=== PATIENT | female | born 1955 | race Caucasian/White ===

== ENCOUNTER 2019-11-16 14:25 | Outpatient (CLI) | payer MEDICARE, SELFPAY ==
--- NOTE | 2019-11-16 15:00 | USCV_ITS ---
Amy Lowery Age: 64 Gender: F : 1955 Exam Date: 11/16/2019 14:44 Ordering Phys: Toby Anderson MD ([email or web address]) Technologist: Tammy Mcghee Exam Location: [facility] [place] Indication: MV INSUF BP: 159 / 76 HR: 75 Rhythm: Sinus Technical Quality: Adequate MEASUREMENTS (Male / Female) Normal Values 2D ECHO LV Diastolic Diameter PLAX 3.7 cm 4.2 - 5.9 / 3.9 - 5.3 cm LV Systolic Diameter PLAX 3.3 cm LV Chamber Size 3.3 cm IVS Diastolic Thickness 1.3 cm 0.6 - 1.0 / 0.6 - 0.9 cm IVS Systolic Thickness 1.5 cm LVPW Diastolic Thickness 1.8 cm 0.6 - 1.0 / 0.6 - 0.9 cm LVPW Systolic Thickness 2.0 cm RV Chamber Size 3.1 cm LVOT Diameter 2.0 cm LV Ejection Fraction 2D Teich 23.0 % LV Ejection Fraction MOD 2C 77.1 % LV Ejection Fraction 2C AL 77.9 % LA Diameter 3.1 cm LA Width 3.5 cm LA Height 4.2 cm RA Width 3.5 cm RA Height 4.3 cm Aorta at Sinotubular Diameter 2.3 cm M-MODE LV Diastolic Diameter MM 5.4 cm 4.2 - 5.9 / 3.9 - 5.3 cm LV Systolic Diameter MM 3.6 cm LV Ejection Fraction MM Teich 62.4 % IVS Diastolic Thickness MM 0.7 cm 0.6 - 1.0 / 0.6 - 0.9 cm IVS Systolic Thickness MM 0.8 cm LVPW Diastolic Thickness MM 0.7 cm 0.6 - 1.0 / 0.6 - 0.9 cm LVPW Systolic Thickness MM 1.2 cm Aortic Annulus Diameter 2.2 cm LA Ao Ratio MM 1.4 MV E Point Septal Separation 1.0 cm DOPPLER AV Peak Velocity 121.0 cm/s LVOT Peak Velocity 97.0 cm/s AV Area Cont Eq vti 2.2 cm squared AV Area Cont Eq pk 2.5 cm squared MV Area PHT 3.2 cm squared Mitral E to A Ratio 0.7 MV E' Velocity 9.0 cm/s Mitral E to MV E' Ratio 9.9 Mitral E to LV E' Lateral Ratio 8.2 Mitral E to LV E' Septal Ratio 12.6 TR Peak Velocity 140.0 cm/s TR Peak Gradient 7.8 mmHg TV Peak E Velocity 62.0 cm/s Right Atrial Pressure 3.0 mmHg Pulmonary Artery Systolic Pressu 10.8 mmHg PV Peak Velocity 76.0 cm/s RV Acceleration Time 0.2 s RV Ejection Time 0.4 s RV AcT/ET 0.5 FINDINGS Left Ventricle Normal left ventricular size and systolic function, EF 66 %. Mild left ventricular hypertrophy. Grade I/IV diastolic dysfunction (abnormal relaxation filling pattern), normal to mildly elevated filling pressures. Right Ventricle Normal right ventricular size and systolic function. Right Atrium Upper limit of normal size Left Atrium Upper limit of normal size Mitral Valve Minimally thickened mitral valve. Grade 1 prolapse of the mitral valve.trace mitral valve regurgitation. Aortic Valve Thickened aortic valve. Tricuspid Valve Mild tricuspid valve regurgitation. Pulmonic Valve Pulmonic valve not well visualized. Pericardium No pericardial effusion. Aorta Normal aortic annulus size. CONCLUSIONS Normal left ventricular size and systolic function, EF 66 %. Mild left ventricular hypertrophy. Grade I/IV diastolic dysfunction (abnormal relaxation filling pattern), normal to mildly elevated filling pressures. Thickened aortic valve. Minimally thickened mitral valve. Grade 1 prolapse of the mitral valve. Trace mitral valve regurgitation. Mild tricuspid valve regurgitation. There is no pericardial effusion. There are no intracardiac masses. No previous study is available for comparison. Dr Toby Anderson MD [facility] (Electronically Signed) Final Date: 16 November 2019 19:42 S
== END 2019-11-16 14:26 | disposition home or self-care (01) ==
LOC: RAD 14:30
PROVIDERS: Family Provider Family Medicine; PCP Family Medicine; Visit Provider Internal Medicine Cardiovascular Disease
DX: I08.3 Combined rheumatic disorders of mitral, aortic and tricuspid valves (principal)
CPT/HCPCS: 93306

== ENCOUNTER → 2020-05-23 09:19 | Outpatient (BNVA) | payer MEDICARE, SELFPAY | PROVIDERS: Family Provider Family Medicine; PCP Family Medicine; Visit Provider Internal Medicine Cardiovascular Disease | DX: E78.5 Hyperlipidemia, unspecified (principal) | CPT/HCPCS: 80061 ==

== ENCOUNTER → 2020-06-29 11:03 | Outpatient (BNVA) | payer MEDICARE, SELFPAY | PROVIDERS: Family Provider Family Medicine; PCP Family Medicine; Visit Provider Family Medicine | DX: M25.562 Pain in left knee (principal); S86.912A Strain of unspecified muscle(s) and tendon(s) at lower leg level, left leg, initial encounter; X58.XXXA Exposure to other specified factors, initial encounter | CPT/HCPCS: 73562 ==

== ENCOUNTER → 2020-08-31 09:57 | Outpatient (BNVA) | payer MEDICARE, SELFPAY | PROVIDERS: PCP Family Medicine; Referring Provider Family Medicine; Visit Provider Specialist | DX: M25.562 Pain in left knee (principal); M79.672 Pain in left foot; S72.432A Displaced fracture of medial condyle of left femur, initial encounter for closed fracture; S83.242A Other tear of medial meniscus, current injury, left knee, initial encounter; Z47.89 Encounter for other orthopedic aftercare; S72.432D Displaced fracture of medial condyle of left femur, subsequent encounter for closed fracture with routine healing; X58.XXXD Exposure to other specified factors, subsequent encounter | CPT/HCPCS: 73560; 73565; 97760; L1812 ==

== ENCOUNTER 2020-08-31 11:33 | Outpatient (CLI) | payer MEDICARE, SELFPAY | END 2020-08-31 11:34 | disposition home or self-care (01) | LOC: SPT 11:34 | PROVIDERS: PCP Family Medicine; Visit Provider Specialist | DX: Z47.89 Encounter for other orthopedic aftercare (principal); S72.432D Displaced fracture of medial condyle of left femur, subsequent encounter for closed fracture with routine healing; X58.XXXD Exposure to other specified factors, subsequent encounter | CPT/HCPCS: 97760; L1812 ==

== ENCOUNTER → 2020-10-25 09:40 | Outpatient (BNVA) | payer MEDICARE, SELFPAY | PROVIDERS: PCP Family Medicine; Referring Provider Specialist; Visit Provider Podiatrist Foot & Ankle Surgery | DX: M79.672 Pain in left foot (principal); M20.40 Other hammer toe(s) (acquired), unspecified foot; M21.619 Bunion of unspecified foot | CPT/HCPCS: 73630 ==

== ENCOUNTER 2020-10-25 10:24 | Outpatient (CLI) | payer MEDICARE, SELFPAY | END 2020-10-25 10:25 | disposition home or self-care (01) | LOC: SPT 10:24 | PROVIDERS: PCP Family Medicine; Visit Provider Specialist | DX: Z46.89 Encounter for fitting and adjustment of other specified devices (principal); S72.432D Displaced fracture of medial condyle of left femur, subsequent encounter for closed fracture with routine healing; X58.XXXD Exposure to other specified factors, subsequent encounter | CPT/HCPCS: 97760; L1851 ==

== ENCOUNTER 2020-11-29 13:53 | Outpatient (CLI) | payer MEDICARE, SELFPAY | END 2020-11-29 13:54 | disposition home or self-care (01) | LOC: SPT 13:54 | PROVIDERS: PCP Family Medicine; Visit Provider Podiatrist Foot & Ankle Surgery | DX: Z46.89 Encounter for fitting and adjustment of other specified devices (principal); S72.435D Nondisplaced fracture of medial condyle of left femur, subsequent encounter for closed fracture with routine healing; X58.XXXD Exposure to other specified factors, subsequent encounter | CPT/HCPCS: L3030 ==

== ENCOUNTER 2021-01-10 06:00 | Outpatient (RCR) | payer MEDICARE, SELFPAY | END 2021-02-07 23:59 | disposition home or self-care (01) | LOC: GPT 06:00 | PROVIDERS: PCP Family Medicine; Referring Provider Specialist; Visit Provider Specialist | DX: S72.432D Displaced fracture of medial condyle of left femur, subsequent encounter for closed fracture with routine healing (principal); X58.XXXD Exposure to other specified factors, subsequent encounter | CPT/HCPCS: 97032; 97110; 97112; 97116; 97140; 97162; 97530; 97760 ==

== ENCOUNTER → 2021-01-31 11:09 | Outpatient (BNVA) | payer MEDICARE, SELFPAY | PROVIDERS: PCP Family Medicine; Visit Provider Internal Medicine Cardiovascular Disease | DX: R06.02 Shortness of breath (principal); E78.5 Hyperlipidemia, unspecified | CPT/HCPCS: 80048; 80061 ==

== ENCOUNTER 2021-02-08 06:00 | Outpatient (RCR) | payer MEDICARE, SELFPAY | END 2021-03-09 23:59 | disposition home or self-care (01) | LOC: GPT 06:00 | PROVIDERS: PCP Family Medicine; Referring Provider Specialist; Visit Provider Specialist | DX: S72.422D Displaced fracture of lateral condyle of left femur, subsequent encounter for closed fracture with routine healing (principal); X58.XXXD Exposure to other specified factors, subsequent encounter | CPT/HCPCS: 97032; 97110; 97112; 97116; 97140; 97164; 97530 ==

== ENCOUNTER 2021-03-10 06:00 | Outpatient (RCR) | payer MEDICARE, SELFPAY | END 2021-04-09 23:59 | disposition home or self-care (01) | LOC: GPT 06:00 | PROVIDERS: PCP Family Medicine; Referring Provider Specialist; Visit Provider Specialist | DX: Z47.1 Aftercare following joint replacement surgery (principal); Z96.652 Presence of left artificial knee joint | CPT/HCPCS: 97116; 97530 ==

== ENCOUNTER 2021-03-22 10:12 | Outpatient (CLI) | payer MEDICARE, SELFPAY ==
--- NOTE | 2021-03-22 15:45 | XR_ITS ---
WS: [id number] SCREENING DEXA SCAN [employer] CLINICAL INFORMATION: S72.435A - Nondisplaced fracture of medial condyle of left femur, initial encou nter for closed fracture COMPARISON: None. FINDINGS: Lumbar scoliosis. The L1-L4 bone mineral density measures 1.172 g/cm2. This corresponds to a T score score of -0.1 and Z score of 0.8. Left femoral neck bone mineral density measures 0.844 g/cm2. This corresponds to a T score of -1.3 an d Z score of -0.5. Right femoral neck bone mineral density measures 0.968 g/cm2. This corresponds to a T score -0.3of an d Z score of 0.5. Mean femoral neck bone mineral density measures 0.906 g/cm2. This corresponds to a T score of -0.8 an d Z score of 0.0. XR/XR DEXA axial skeleton* [id number] IMPRESSION: Osteopenia left hip. Normal bone mineralization lumbar spine and right hip. Patient's FRAX calculated 10 year probability for major osteoporotic fracture i s 15.2 % and osteoporotic hip fracture is 1.9%.
== END 2021-03-22 10:13 | disposition home or self-care (01) ==
PROVIDERS: PCP Family Medicine; Visit Provider Family Medicine
DX: S72.435A Nondisplaced fracture of medial condyle of left femur, initial encounter for closed fracture (principal); Z78.0 Asymptomatic menopausal state; M85.88 Other specified disorders of bone density and structure, other site
CPT/HCPCS: 77080

== ENCOUNTER 2021-04-06 06:00 | Outpatient (RCR) | payer MEDICARE, SELFPAY | END 2021-04-09 23:59 | disposition home or self-care (01) | LOC: GPT 06:00 | PROVIDERS: PCP Family Medicine; Referring Provider Orthopaedic Surgery Pediatric Orthopaedic Surgery; Visit Provider Orthopaedic Surgery Pediatric Orthopaedic Surgery | DX: Z47.1 Aftercare following joint replacement surgery (principal); Z96.652 Presence of left artificial knee joint | CPT/HCPCS: 97110; 97116; 97161; 97530 ==

== ENCOUNTER 2021-04-10 06:00 | Outpatient (RCR) | payer MEDICARE, SELFPAY | END 2021-05-09 23:59 | disposition home or self-care (01) | LOC: GPT 06:00 | PROVIDERS: PCP Family Medicine; Referring Provider Orthopaedic Surgery Pediatric Orthopaedic Surgery; Visit Provider Orthopaedic Surgery Pediatric Orthopaedic Surgery | DX: Z47.1 Aftercare following joint replacement surgery (principal); Z96.652 Presence of left artificial knee joint | CPT/HCPCS: 97032; 97110; 97112; 97116 ==

== ENCOUNTER 2021-05-10 06:00 | Outpatient (RCR) | payer MEDICARE, SELFPAY | END 2021-06-09 23:59 | disposition home or self-care (01) | LOC: GPT 06:00 | PROVIDERS: PCP Family Medicine; Referring Provider Orthopaedic Surgery Pediatric Orthopaedic Surgery; Visit Provider Orthopaedic Surgery Pediatric Orthopaedic Surgery | DX: Z47.1 Aftercare following joint replacement surgery (principal); Z96.652 Presence of left artificial knee joint | CPT/HCPCS: 97110; 97112; 97116; 97164; 97530 ==

== ENCOUNTER → 2022-02-06 12:58 | Outpatient (BNVA) | payer MEDICARE, SELFPAY | PROVIDERS: PCP Family Medicine; Visit Provider Surgery | DX: Z20.822 Contact with and (suspected) exposure to COVID-19 (principal); Z11.52 Encounter for screening for COVID-19 | CPT/HCPCS: 87635 ==

== ENCOUNTER → 2022-02-07 14:22 | Outpatient (BNVA) | payer MEDICARE, SELFPAY | PROVIDERS: PCP Family Medicine; Visit Provider Internal Medicine Cardiovascular Disease | DX: I25.10 Atherosclerotic heart disease of native coronary artery without angina pectoris (principal); I34.0 Nonrheumatic mitral (valve) insufficiency; Z87.891 Personal history of nicotine dependence | CPT/HCPCS: 99213 ==

== ENCOUNTER 2022-02-11 09:05 | Day surgery (SDC) | payer MEDICARE, SELFPAY ==
[2022-02-08 14:54] VITALS: BMI 25.1
[2022-02-11 09:23] VITALS: BP 159/94; PULSE 65; RESP 17; TEMP 36.1; O2SAT 98
[2022-02-11] MEDS: sodium chloride 0.9% 1,000 ML 30 ML IV (09:48)
--- NOTE | 2022-02-11 09:56 | P.ANESASSM_ITS ---
Pre-Anesthetic Assessment Height/Weight: Height 1.8 m Weight 81.647 kg Temp Pulse Resp BP Pulse Ox 97.0 F L 65 17 159/94 98 02/11/22 09:23 02/11/22 09:23 02/11/22 09:23 02/11/22 09:23 02/11/22 09:23 Preop Diagnosis: Symptomatic hemorrhoid Operation Date: 02/11/22 10:45 Proposed Procedures p Colonoscopy [id number](Not Applicable) - Rodney Ortiz MD s Possible Hemorroidectomy(Not Applicable) - Rodney Ortiz MD Familial anesthetic complications: none Was Beta Juan taken within 24 hours: Yes Was Clonidine taken within 24 hours: N/A Last intake: Intake Last Liquid Date 02/10/22 Last Liquid Time 20:00 Last Solid Date 02/09/22 Last Solid Time 18:00 Social No alcohol and No tobacco Exam alert, oriented x 3, clear to auscultation bilaterally and regular rate & rhythm Airway Mallampati: Class II Dentition: partials and other (missing) CV/HEM Coronary Artery Disease (PCI w/ stents in 2003) and Hypertension 2019 echo CONCLUSIONS ?Normal left ventricular size and systolic function, EF 66 %. ?Mild left ventricular hypertrophy. ?Grade I/IV diastolic dysfunction (abnormal relaxation filling ?pattern), normal to mildly elevated filling pressures. ?Thickened aortic valve. ?Minimally thickened mitral valve.? Grade 1 prolapse of the ?mitral valve. ?Trace mitral valve regurgitation. ?Mild tricuspid valve regurgitation. ?There is no pericardial effusion. ?There are no intracardiac masses. ?No previous study is available for comparison. Metabolic Hyperlipidemia Anesthetic Plan ASA status: 3 Anesthesia: General Medications/Allergies Home Medications Medication Instructions Recorded Confirmed Last Taken Type aspirin 325 mg tablet 325 mg PO DAILY tab 11/11/19 02/11/22 02/07/22 History coenzyme Q10 100 mg capsule 200 mg PO DAILY cap 11/11/19 02/11/22 02/10/22 05:00 History (CoQ-10) cholecalciferol (vitamin D3) 25 25 mcg PO DAILY 06/29/20 02/11/22 02/10/22 05:00 History mcg (1,000 unit) capsule Hinged knee brace #1 each 08/31/20 01/21/22 Unknown Rx Medial Production Illustrator Knee Brace #1 ea 09/11/20 01/21/22 Unknown Rx Sole Supports #1 ea 10/25/20 01/21/22 Unknown Rx valsartan 320 mg tablet 320 mg PO DAILY #90 tab 07/13/21 02/11/22 02/10/22 05:00 Rx amlodipine 5 mg tablet 5 mg PO DAILY #90 tab 08/07/21 02/11/22 02/10/22 05:00 Rx metoprolol succinate 100 mg 100 mg PO DAILY #90 tab 11/06/21 02/11/22 02/11/22 04:30 Rx tablet,extended release 24 hr (Toprol XL) rosuvastatin 20 mg tablet (Crestor) 20 mg PO DAILY 02/08/22 02/11/22 02/10/22 23:00 History Allergies Allergy/AdvReac Type Severity Reaction Status Date / Time acetaminophen [From Tylenol] Allergy Unknown hives Verified 02/11/22 09:24 codeine Allergy ALGY-Rash Verified 02/11/22 09:26 Current Medications Generic Name Dose Route Start Last Admin Trade Name Freq PRN Reason Stop Dose Admin Sodium Chloride 1,000 mls @ 30 mls/hr 02/11/22 09:15 02/11/22 09:48 Sodium Chloride 0.9% IV 02/12/22 09:14 30 mls/hr .Q24H JUANA Administration PFSH Anesthesia Medical History Coronary artery disease Patient had PCI in 2003 at the hospital in [facility]. She had 2 stent placement in the left anterior descending artery. Hyperlipidemia Patient is on Crestor Hypertension Importance of medication compliance was discussed with the patient Surgical History History of coronary artery stent placement Family History Sister CAD (coronary artery disease) Father Suicide Denies family history of Diabetes Clotting disorder Dementia Chronic kidney disease (CKD) Anesthesia complication Bleeding disorder Lung disease Cancer Stroke Social History Smoking and tobacco status: former smoker Alcohol intake: never Household members: spouse Data Anesthesia Cardiac Studies: Echocardiogram Ultrasound 11/16/19
--- NOTE | 2022-02-11 11:45 | W.PM.OPSUD ---
Surgery/Procedure H&P Update DATE OF PROCEDURE: February 11, 2022 DATE H&P PERFORMED: 01/21/22 H&P UPDATE INFORMATION: I have reviewed H&P completed within last 30 days, I have examined patient prior to procedure and No changes to prior documentation PREOP DIAGNOSIS: Symptomatic hemorrhoid PRIMARY INDICATION FOR PROCEDURE: The same PLANNED PROCEDURE: Operation Date: 02/11/22 10:45 Proposed Procedures p Colonoscopy [id number](Not Applicable) - Rodney Ortiz MD s Possible Hemorroidectomy(Not Applicable) - Rodney Ortiz MD
--- NOTE | 2022-02-11 12:27 | P.OP_ITS ---
Operative Report Date of procedure: February 11, 2022 Pre-op diagnosis: Preop Diagnosis Symptomatic hemorrhoid Post-op diagnosis: Normal colonoscopy Procedure done: Diagnostic colonoscopy Surgeon: Rodney Ortiz MD Data Collection Associate: MAGGIE Napier Circulating nurse Jane Anesthesia: MAC (ic design manager Keven) Estimated blood loss: 0 Procedure: Patient was identified in the holding area, was taken to the OR placed first in supine position, time-out was done verifying the patient's name, date of , and procedure, all were in agreement. IV propofol was infused by the anesthesia provider, patient was placed in left lateral position. Patient was monitored via bus driver/monitor all the entire procedure. Perianal examination showed no evidence of hemorrhoidal disease or fissures or lacerations Following that a digital rectal examination was done, the colonoscope was then introduced via the anus under direct visualization, all the way to the cecum, prep of the colon was appropriate, there were no polyps identified or masses or diverticular disease or strictures, the scope was then retrieved back ,time for withdrawal exceeded 6 minutes, gas was deflated on the way out. Retroflex was done at the end showing showed normal findings Patient was repositioned to supine position. Patient was taken to the recovery area in stable condition I was present for the whole entire procedure Recommendation to have a repeat colonoscopy in 10 years
[2022-02-11 12:30] VITALS: BP 139/73; PULSE 72; RESP 16; TEMP 36.6; O2SAT 97
--- NOTE | 2022-02-11 12:33 | ANE.PACU2 ---
Inpatient post-anesthesia follow up: Airway intact: Yes Vital signs: Temperature 97.0 F Pulse Rate 65 Respiratory Rate 17 Blood Pressure 159/94 Pulse Oximetry 98 Oxygen Delivery Me thod Room Air Oxygen Flow Rate Fraction of Inspir ed Oxygen Hydration adequate: Yes Nausea and vomiting: No Pain level: 1 Mental status: Baseline
[2022-02-11 12:35] VITALS: BP 136/79; PULSE 70; RESP 16; TEMP 36.2; O2SAT 97
[2022-02-11 12:43] VITALS: BP 166/94; PULSE 78; RESP 17; TEMP 36.2; O2SAT 97
== END 2022-02-11 13:14 | disposition home or self-care (01) ==
PROVIDERS: PCP Family Medicine; Visit Provider Surgery
PROC: 0DJD8ZZ Inspection of Lower Intestinal Tract, Via Natural or Artificial Opening Endoscopic (ICD-10-PCS; CPT 45378; principal; 2022-02-11 10:45)
DX: K64.9 Unspecified hemorrhoids (principal); I25.10 Atherosclerotic heart disease of native coronary artery without angina pectoris; Z95.5 Presence of coronary angioplasty implant and graft; I10 Essential (primary) hypertension; E78.5 Hyperlipidemia, unspecified; Z79.82 Long term (current) use of aspirin; Z87.891 Personal history of nicotine dependence
CPT/HCPCS: 45378; J0330; J1100; J2405; J2704; J3010; J3490; J7030

== ENCOUNTER → 2022-08-08 14:28 | Outpatient (BNVA) | payer MEDICARE, SELFPAY | PROVIDERS: PCP Family Medicine; Visit Provider Internal Medicine Cardiovascular Disease | DX: I25.10 Atherosclerotic heart disease of native coronary artery without angina pectoris (principal); I34.0 Nonrheumatic mitral (valve) insufficiency; E78.2 Mixed hyperlipidemia; I10 Essential (primary) hypertension; Z87.891 Personal history of nicotine dependence | CPT/HCPCS: 99214 ==

== ENCOUNTER → 2022-08-12 13:46 | Outpatient (BNVA) | payer MEDICARE, SELFPAY | PROVIDERS: PCP Family Medicine; Visit Provider Podiatrist Foot & Ankle Surgery | DX: M21.41 Flat foot [pes planus] (acquired), right foot (principal); M21.42 Flat foot [pes planus] (acquired), left foot; M20.40 Other hammer toe(s) (acquired), unspecified foot; M21.619 Bunion of unspecified foot; L60.3 Nail dystrophy | CPT/HCPCS: 99213 ==

== ENCOUNTER → 2022-08-19 10:56 | Outpatient (BNVA) | payer MEDICARE, SELFPAY | PROVIDERS: PCP Family Medicine; Visit Provider Family Medicine | DX: R06.02 Shortness of breath (principal); E78.5 Hyperlipidemia, unspecified; R11.10 Vomiting, unspecified; R19.7 Diarrhea, unspecified; K52.9 Noninfective gastroenteritis and colitis, unspecified | CPT/HCPCS: 80048; 80061; 80076; 85025 ==

== ENCOUNTER → 2022-08-21 15:32 | Outpatient (BNVA) | payer MEDICARE, SELFPAY | PROVIDERS: PCP Family Medicine; Visit Provider Family Medicine | DX: R11.10 Vomiting, unspecified (principal); R19.7 Diarrhea, unspecified | CPT/HCPCS: 82270 ==

== ENCOUNTER → 2022-08-22 09:50 | Outpatient (BNVA) | payer MEDICARE, SELFPAY | PROVIDERS: PCP Family Medicine; Visit Provider Podiatrist Foot & Ankle Surgery | DX: M21.41 Flat foot [pes planus] (acquired), right foot (principal); M21.42 Flat foot [pes planus] (acquired), left foot; M20.41 Other hammer toe(s) (acquired), right foot; M21.619 Bunion of unspecified foot; M20.42 Other hammer toe(s) (acquired), left foot; L60.0 Ingrowing nail; L60.3 Nail dystrophy | CPT/HCPCS: 11750 ==

== ENCOUNTER → 2022-09-18 10:23 | Outpatient (BNVA) | payer MEDICARE, SELFPAY | PROVIDERS: PCP Family Medicine; Visit Provider Family Medicine | DX: D64.9 Anemia, unspecified (principal) | CPT/HCPCS: 85025 ==

== ENCOUNTER → 2022-09-19 09:45 | Outpatient (BNVA) | payer MEDICARE, SELFPAY | PROVIDERS: PCP Family Medicine; Visit Provider Podiatrist Foot & Ankle Surgery | DX: L60.0 Ingrowing nail (principal) | CPT/HCPCS: 11750; 99213 ==

== ENCOUNTER → 2023-03-24 13:08 | Outpatient (BNVA) | payer MEDICARE, SELFPAY | PROVIDERS: PCP Family Medicine; Visit Provider Nurse Practitioner Family | DX: I25.10 Atherosclerotic heart disease of native coronary artery without angina pectoris (principal); I10 Essential (primary) hypertension; E78.2 Mixed hyperlipidemia; Z87.891 Personal history of nicotine dependence | CPT/HCPCS: 99214 ==

== ENCOUNTER → 2023-11-04 10:25 | Outpatient (BNVA) | payer MEDICARE, SELFPAY | PROVIDERS: PCP Family Medicine; Visit Provider Internal Medicine Cardiovascular Disease | DX: I50.9 Heart failure, unspecified (principal); R07.9 Chest pain, unspecified; E78.5 Hyperlipidemia, unspecified; I25.10 Atherosclerotic heart disease of native coronary artery without angina pectoris; I10 Essential (primary) hypertension; E78.2 Mixed hyperlipidemia; I34.0 Nonrheumatic mitral (valve) insufficiency; Z87.891 Personal history of nicotine dependence | CPT/HCPCS: 93005; 99214 ==

== ENCOUNTER → 2023-12-04 08:51 | Outpatient (BNVA) | payer MEDICARE, SELFPAY | PROVIDERS: PCP Family Medicine; Visit Provider Internal Medicine Cardiovascular Disease | DX: E78.2 Mixed hyperlipidemia (principal); I10 Essential (primary) hypertension; E78.5 Hyperlipidemia, unspecified | CPT/HCPCS: 80061; 80076 ==

== ENCOUNTER → 2024-05-05 09:20 | Outpatient (BNVA) | payer MEDICARE, SELFPAY | PROVIDERS: PCP Family Medicine; Visit Provider Internal Medicine Cardiovascular Disease | DX: I25.10 Atherosclerotic heart disease of native coronary artery without angina pectoris (principal); I10 Essential (primary) hypertension; E78.2 Mixed hyperlipidemia; I34.0 Nonrheumatic mitral (valve) insufficiency; Z87.891 Personal history of nicotine dependence | CPT/HCPCS: 99214 ==

== ENCOUNTER → 2024-06-14 10:39 | Outpatient (BNVA) | payer MEDICARE, SELFPAY | PROVIDERS: PCP Family Medicine; Visit Provider Nurse Practitioner Family | DX: J02.9 Acute pharyngitis, unspecified (principal) | CPT/HCPCS: 87071; 87426; 87880 ==

== ENCOUNTER → 2025-01-13 10:44 | Outpatient (BNVA) | payer MEDICARE, SELFPAY | PROVIDERS: PCP Family Medicine; Visit Provider Nurse Practitioner Family | DX: I10 Essential (primary) hypertension (principal); I21.09 ST elevation (STEMI) myocardial infarction involving other coronary artery of anterior wall | CPT/HCPCS: 93005; 99213 ==

== ENCOUNTER → 2025-07-21 08:53 | Outpatient (BNVA) | payer MEDICARE, SELFPAY | PROVIDERS: PCP Family Medicine; Visit Provider Internal Medicine Cardiovascular Disease | DX: I25.10 Atherosclerotic heart disease of native coronary artery without angina pectoris (principal); Z79.899 Other long term (current) drug therapy | CPT/HCPCS: 80061; 80076 ==

== ENCOUNTER → 2025-07-28 15:28 | Outpatient (BNVA) | payer MEDICARE, SELFPAY | PROVIDERS: PCP Family Medicine; Visit Provider Internal Medicine Cardiovascular Disease | DX: I25.10 Atherosclerotic heart disease of native coronary artery without angina pectoris (principal); I10 Essential (primary) hypertension; E78.5 Hyperlipidemia, unspecified; I34.1 Nonrheumatic mitral (valve) prolapse; Z95.5 Presence of coronary angioplasty implant and graft; Z87.891 Personal history of nicotine dependence | CPT/HCPCS: 99214 ==